=== PATIENT | male | born 1965 | race Caucasian/White ===

== ENCOUNTER 2017-02-24 08:32 | Outpatient (CLI) ==
[2017-02-24 08:52] LABS: BASOPHILS # (AUTO) 0.1 K/uL (0-0.2); BASOPHILS % (AUTO) 0.9 % (0.0-3.0); EOSINOPHILS # (AUTO) 1.2 K/ul (0.0-0.7); EOSINOPHILS % (AUTO) 10.6 % (0.0-7.0); HEMATOCRIT 51.7 % (42.0-52.0); HEMOGLOBIN 17.6 g/dl (14.0-18.0); IMMATURE GRANULOCYTE % (AUTO) 0.4 % (0.0-5.0); LYMPHOCYTES # (AUTO) 3.8 K/uL (0.60-3.4); LYMPHOCYTES % (AUTO) 33.6 (10.0-50.0); MEAN CORPUSCULAR HEMOGLOBIN 30.1 pg (27.0-31.0); MEAN CORPUSCULAR VOLUME 88.4 fl (80.0-94.0); MONOCYTES # (AUTO) 0.9 K/uL (0.4-2.0); MONOCYTES % (AUTO) 7.9 (0-10); NEUTROPHILS # (AUTO) 5.2 K/ul (2.0-6.9); NEUTROPHILS % (AUTO) 46.6; PLATELET COUNT 312 10^3/uL (140-440); RED BLOOD COUNT 5.85 10^6/ul (4.70-6.10); WHITE BLOOD COUNT 11.24 K/ul (4.2-10.2)
[2017-02-24 09:29] LABS: ALBUMIN 4.1 g/dL (3.4-5.0); ALBUMIN/GLOBULIN RATIO 1.32; ANION GAP 12.6; BILIRUBIN,TOTAL 1.41 mg/dL (0.00-1.20); CALCIUM 9.2 mg/dL (8.2-10.2); CHOL/HDL RATIO 5.1 (4.5-6.4); POTASSIUM 4.6 mmol/L (3.5-5.1); TOTAL PROTEIN 7.2 g/dL (6.4-8.2)
--- NOTE | 2017-02-25 08:54 | MRI ---
EXAM: Thoracic spine MRI without contrast. HISTORY: Back pain. COMPARISON: None. TECHNIQUE: Multiplanar, multisequence MR images were acquired of the thoracic spine without contras t. FINDINGS: 12 rib-bearing thoracic vertebra are present. There is minor mid thoracic dextroscoliosi s centered at T7-8 and there is mild mid thoracic kyphosis. There is mild chronic anterior wedging of the T7 and T8 vertebra. The thoracic vertebra are generally normal in height and intrinsic bone marrow signal. No acute compression fractures are present. Small ventral and lateral osteophytes a re present in the thoracic spine and there is mild endplate irregularity with disc space narrowing a nd disc desiccation from T2-3 to T11-12, this is most significant at T7-8, T8-9 and T11-12. There a re chronic Schmorl's nodes at T7, T9 and T11. There is faint visualization of the central canal in the thoracic cord at T4-5. Canal diameter is developmentally normal. However, there is prominent d orsal epidural lipomatosis from T3-4 to T10, most significant at T6, T7 and T8. This narrows the po sterior thecal sac. A perineural cyst is present on the right at C7-T1. There are no paravertebral masses. The visualized liver, spleen and upper pole of the left kidney are unremarkable. An exoph ytic upper pole right renal cyst is present. T1-2: The intervertebral disc is normal. There is mild bilateral foraminal stenosis. T2-3: There is a moderate dorsal spondylotic ridge that minimally effaces the ventral thecal sac. Prominent dorsal epidural fat is present and these findings cause mild spinal stenosis. AP diameter of the thecal sac is 9.3 mm. T3-4: The intervertebral disc is normal. There is mild right neural foraminal stenosis. A benign intraosseous hemangioma is present in the left posterior T3 vertebra. T4-5: There is a small right paracentral disc protrusion and annular fissure that mildly indents th e right thoracic cord. There is mild spinal stenosis. AP diameter of the thecal sac is 8.2 mm. T5-6: The intervertebral disc is normal. T6-7: The intervertebral disc is normal. T7-8: There is a mild dorsal spondylotic ridge that minimally indents the thoracic cord although ce rebrospinal fluid is preserved around the cord. There is mild spinal stenosis. AP diameter of the t hecal sac is 8 mm. T8-9, T9-10: The intervertebral discs are normal. There is mild left T8-9 and mild bilateral T9-10 facet hypertrophy. There is mild bilateral foraminal stenosis. A benign intraosseous hemangioma is present in the left anterior T10 vertebra. T10-11: The intervertebral disc is normal. There is bilateral facet hypertrophy, greater on the le ft and mild right and mild to moderate left neural foraminal stenosis. T11-12: The intervertebral disc is normal. T12-L1: The intervertebral disc is normal. IMPRESSION: 1. Mild chronic anterior wedge compression deformities T7 and T8. No acute compression fractures. 2. Mild thoracic degenerative spondylosis with small chronic Schmorl's nodes at T7, T9 and T11. 3. Dorsal epidural lipomatosis which in conjunction with degenerative changes causes mild spinal st enosis at T2-3, T4-5 and T7-8. 4. Small right paracentral disc protrusion T4-5 that mildly indents the right thoracic cord. 5. Mild dorsal spondylotic ridge at T7-8 that minimally indents the thoracic cord without edema.
== END 2017-02-24 08:33 | disposition home or self-care (01) ==
LOC: RAD 08:32
PROVIDERS: ATTEND Nurse Practitioner Family
DX: M54.6 Pain in thoracic spine (principal); G89.29 Other chronic pain; Z00.00 Encounter for general adult medical examination without abnormal findings; Z72.0 Tobacco use
CPT/HCPCS: 36415; 80053; 80061; 84443; 85025; 93005; 93010

== ENCOUNTER 2017-03-17 08:51 | Outpatient (CLI) ==
--- NOTE | 2017-03-17 09:44 | CT ---
EXAM: CT chest with contrast. HISTORY: Dysphagia. COMPARISON: None available. TECHNIQUE: Multiple axial images of the chest were obtained following intravenous administration of 75 mL of Omnipaque 350, low osmolar. Images were reformatted in the sagittal and coronal planes. FINDINGS: No mediastinal, hilar, or axillary lymphadenopathy identified. Heart size is normal. No pericardial effusion identified. A 0.4 cm left lower lobe nodule on axial image 49 is noted. Smaller left lower lobe nodule noted on axial image 35. No consolidation, pleural effusion or pneumothorax identified. Limited images of the upper abdomen demonstrate a homogeneous fluid density of right renal mass libby uring 6.4 cm diameter. No acute osseous abnormality identified. Old appearing compression deformit y of T7 noted along with multilevel degenerative endplate changes. IMPRESSION: 1. No acute abnormality of the chest. 2. Left lower lobe micronodules. Consider follow-up CT 12 months for reassessment. 3. Large right renal cyst.
== END 2017-03-17 08:52 | disposition home or self-care (01) ==
LOC: RAD 08:51
PROVIDERS: ATTEND Nurse Practitioner Family
DX: R13.10 Dysphagia, unspecified (principal); Z72.0 Tobacco use

== ENCOUNTER 2017-03-20 09:04 | Outpatient (CLI) ==
--- NOTE | 2017-03-20 10:28 | DI ---
EXAM: Double contrast esophagram. History: Dysphagia. Technique: Patient was given gas crystals. Patient was then given oral barium and multiple spot fi lms of the esophagus and gastroesophageal junction were obtained in various projections. Findings: The course and caliber of the esophagus are within normal limits. A suggestion of a felin e esophagus with minimal mucosal irregularity. No rajni esophageal masses. No hiatal hernia. No ga stroesophageal reflux was observed during the course of this examination. No gastric outlet obstruc tion. 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
== END 2017-03-20 09:05 | disposition home or self-care (01) ==
LOC: RAD 09:04
PROVIDERS: ATTEND Nurse Practitioner Family
DX: R13.10 Dysphagia, unspecified (principal)

== ENCOUNTER 2017-05-25 08:33 | Outpatient (RCR) ==
--- NOTE | 2017-05-26 15:51 | RS.OPPTEV2 ---
Date of Note: 05/25/17 Visit #: 1 Date of Evaluation: 05/25/17 Payer Source: Medicaid Treatment Diagnosis: Thoracic spine pain History of Condition/Mechanism of Injury:: Patient reports progressive thoracic spine pain for years. States pain has been much worse for about the last 12 months. Prior Level of Function.....Patient was independent with: ADL's, Self Care, Caregiving, Ambulation/Mobility, Community Integration/Access Functional Limitations: Sleep, ADL's, Reaching, Pushing, Pulling, Lifting, Carrying, Sitting Current Subjective/complaints:: Patient reports mid back pain with sitting activities. Reports the right side of the back bothers him the most. He is right hand dominant. States his sleeping interrupted from pain and the fact that he sleeps during the day. Reports laying on one side sometimes feels like it helps line up his spine and feels a little better. He denies numbness, radiating pain, or weakness. States he does not do much, states he life is very dull. He feels that heavy work throughout his life has cause his mid back pain. He just started going to Pain Management and has not had any injections or procedures. He was prescribed a muscle relaxant, but states he does not take it. He takes Tramadol once a day. Medical History Medical History: Arthritis (Elbows, spine, and knees) Smoking Status: Current every day smoker Hx Home Medications: Tramadol Patient's Goals: His goal is to get relief of middle back pain. Pain Assessment - Pain Description Pain Location: thoracic spine, worse on the right side Current Pain Intensity: 7/10 Worst Pain Intensity: 10/10 Functional Outcome Measure Oswestry LBP: 44 - G Codes & Severity Modifier G Codes & Modifier: NA Source of G Code score: Na Observation - Observation Posture: Forward Head, Rounded Shoulders, Decreased Lumbar Lordosis Comments: Left rotation of thoracic spine. Handedness: Right Gait - Gait Pattern General Gait Pattern Observation: No Deviations/Normal General Range of Motion: Bilateral UE and LE AROM is WFL's. Muscle Strength: Left wrist extension 4+/5, all else of bilateral UE and LE's 5/ 5. Palpation Comments:: Reports no signficant tenderness with palpation along the thoracic paraspinals. Demonstrates moderate increased muscle tone at the lower thoracic paraspinals. Reports no tenderness with central PA's along the thoracic spinous processes. Sensation - Sensation Right Upper Extremity: Intact/Normal Left Upper Extremity: Intact/Normal Right Lower Extremity: Intact/Normal Left Lower Extremity: Intact/Normal Additional Comments: Additional Comments: Demonstrates tightness in pec major and shoulder ER's bilaterally. Interventions - Exercise/Activities/Manual Therapy Exercises/Activities: Patient instructed in scapular retraction with and without green theraband, bilateral shoulder extension with green theraband, and pec major stretch (corner stretch). Reviewed thoracic spine anatomy in detail and explained the effects of poor posture on the spine and muscles. Manual Therapy: NA HOME EXERCISE PROGRAM: scapular retraction with and without green theraband, bilateral shoulder extension with green theraband, and pec major stretch ( corner stretch) - Charges Total Direct Minutes: 65 mins Total Treatment Time: 65 mins Procedures billed for this date of service:: [facility] X 4 Assessment Assessment: Patient presents to therapy with a diagnosis of Thoracic pain, Degenerative disc disease, spondylosis, T7 and T8 compression deformities. He presents with reports of progressively worsening middle back pain. Reports increased pain with prolonged sitting. Sleep is also interrupted from back pain. He presents a very forward head posture and rounded shoulders, which has most likely led to progressively tight chest muscles and weak posterior spine muscle strength. He demonstrates good potential to gain some relief of thoracic spine pain from modalities as indicated and postural strengthening and education. Patient Education: Education of diagnosis, Body/Joint mechanics, Home Exercise Program, Education of Plan of Care Rehab Potential: Good Short Term Goals Goal #1: Patient independent and compliant with initial HEP. Goal to be met by: 06/09/17 Goal #2: Pt to demonstrate improved postural awareness. Goal to be met by: 06/09/17 Goal #3: Pt will demonstrate optimal shoulder horizontal abduction bilaterally. Goal to be met by: 06/09/17 [employer] Operator Goals Goal #1: Patient to report minimal thoracic pain in prolonged sitting positions. Goal to be met by: 07/10/17 Goal #2: Pt knows HEP and to continue ex's to maintain functional level at D/C. Goal to be met by: 07/10/17 Goal #3: Pt to demo. good understanding of body mechanics, posture, and back safety. Goal to be met by: 07/10/17 Plan - Treatment to be Provided Procedures: Therapeutic Exercises, Therapeutic Activity, Patient Education ( postural education and back safety) Modalities: Electrical Stimulation, Cryotherapy, Hot Packs - Treatment Plan Frequency: 2 X week Duration: 6 weeks ORDER # VISITS AND/OR THROUGH DATE: 07/10/17 - Treatment Code (1) Thoracic spine pain Comments: M54.6 (2) Posture imbalance Comments: R29.3 (3) Deformity of thoracic structure Comments: M95.9 Thoracic compression deformities
--- NOTE | 2017-05-30 13:06 | RS.CXNS ---
Date of scheduled appointment: 05/30/17 Type: No Show
--- NOTE | 2017-06-01 11:24 | RS.CXNS ---
Date of scheduled appointment: 06/01/17 Type: No Show
== END 2017-06-05 ==
PROVIDERS: ATTEND Pain Medicine Interventional Pain Medicine
DX: M54.6 Pain in thoracic spine (principal); M54.5 Low back pain; M95.9 Acquired deformity of musculoskeletal system, unspecified; M51.34 Other intervertebral disc degeneration, thoracic region; M47.9 Spondylosis, unspecified

== ENCOUNTER 2017-06-23 11:23 | Outpatient (CLI) ==
--- NOTE | 2017-06-23 12:14 | DI ---
Exam: Five x-rays of the lumbar spine. Comparison: None available. Reason for exam: Radiculopathy and pain. FINDINGS: No acute fracture or malalignment. The vertebral bodies and intervertebral body disc spa ce heights are relatively well maintained. There is mild rotatory dextroscoliosis of the lumbosacra l spine. No significant arthrosis. There is a normal appearing lumbar lordotic curve. Impression: No acute fracture or listhesis in the lumbar spine.
== END 2017-06-23 11:24 ==
LOC: RAD 11:23
PROVIDERS: ATTEND Pain Medicine Interventional Pain Medicine
DX: M51.26 Other intervertebral disc displacement, lumbar region (principal); M51.27 Other intervertebral disc displacement, lumbosacral region; M54.5 Low back pain

== ENCOUNTER 2017-07-24 12:01 | Outpatient (CLI) ==
[2017-07-24 12:33] LABS: BASOPHILS # (AUTO) 0.1 K/uL (0-0.2); BASOPHILS % (AUTO) 0.7 % (0.0-3.0); EOSINOPHILS # (AUTO) 0.8 K/ul (0.0-0.7); EOSINOPHILS % (AUTO) 9.2 % (0.0-7.0); HEMATOCRIT 49.6 % (42.0-52.0); HEMOGLOBIN 16.6 g/dl (14.0-18.0); IMMATURE GRANULOCYTE % (AUTO) 0.4 % (0.0-5.0); LYMPHOCYTES # (AUTO) 3.3 K/uL (0.60-3.4); MEAN CORPUSCULAR HEMOGLOBIN 29.4 pg (27.0-31.0); MEAN CORPUSCULAR HGB CONC 33.5 (31.8-35.4); MEAN CORPUSCULAR VOLUME 87.8 fl (80.0-94.0); MONOCYTES # (AUTO) 0.9 K/uL (0.4-2.0); MONOCYTES % (AUTO) 9.3 (0-10); NEUTROPHILS % (AUTO) 44.4; PLATELET COUNT 297 10^3/uL (140-440); RED BLOOD COUNT 5.65 10^6/ul (4.70-6.10)
--- NOTE | 2017-07-24 12:35 | DI ---
EXAM: PA and lateral views of the chest HISTORY: Hyperhidrosis COMPARISON: CT chest 03/17/2017 FINDINGS: The cardiomediastinal silhouette is normal. There is no pneumothorax or pleural effusion. There is no consolidation, nodule or mass. The osseous structures demonstrate degenerative disease of the spine. IMPRESSION: No acute cardiopulmonary process
== END 2017-07-24 12:02 | disposition home or self-care (01) ==
LOC: LAB 12:01
PROVIDERS: ATTEND Nurse Practitioner Family
DX: R61 Generalized hyperhidrosis (principal)
CPT/HCPCS: 36415; 82306; 82607; 84425; 84443; 84446; 84590; 85025; 86701

== ENCOUNTER 2017-08-03 09:57 | Outpatient (CLI) ==
--- NOTE | 2017-08-03 11:04 | DI ---
EXAM: Three views of the left hand HISTORY: Pain in the left hand. COMPARISON: None FINDINGS: There is no cortical irregularity or displaced fracture of the left hand. The joint spaces are maintained. There is no lytic or blastic lesion. The soft tissues are unremarkable. IMPRESSION: No acute abnormality or displaced fracture of the left hand.
== END 2017-08-03 09:58 | disposition home or self-care (01) ==
LOC: RAD 09:57
PROVIDERS: ATTEND Nurse Practitioner Family
DX: M79.642 Pain in left hand (principal)

== ENCOUNTER 2017-08-18 12:48 | Outpatient (CLI) ==
--- NOTE | 2017-08-18 16:11 | MRI ---
EXAM: MRI left hand without contrast.. HISTORY: Pain in joints of left hand. Bumps on palm of hand near second and third finger.. TECHNIQUE: Using a local coil on a high field strength magnet multiplanar multisequence large field of view imaging obtained through level of the left hand without intravenous or intra-articular gadoli nium contrast. Note this constitutes incomplete MR evaluation of the left wrist.. COMPARISON: Three-view plain film examination left hand 08/03/2017. FINDINGS: The alignment of the left hand shows no dislocation or joint subluxations. Trace radiocar pal joint effusion. Bone marrow signal intensity shows no acute fracture or bone erosions. The exit of the carpal tunnel within normal limit in appearance. Dorsal extensor and palmar flexor t endons grossly intact without tenosynovitis or tendon bow stringing. No markers placed in the ronen ent's reported area of clinical "bumps".. There is subcutaneous bright T2 signal intensity along the palmar soft tissues more centered over the metacarpal phalangeal joint level. At this level centere d more over the palmar aponeurosis and more over the third and fourth digit level there is some ill-d efined intermediate T1 and T2/STIR signal intensity. These two areas of approximate 15 mm in length and 6-8 mm wide. Otherwise the muscle bulk shows normal signal intensity. Tiny 8 mm bright T2 fluid signal intensity cyst along the radial sided aspect of the third metacarpal neck. Question small syn ovial/ganglion cyst.. IMPRESSION: No acute fracture left hand. No bone erosions. No joint subluxations or tenosynovitis. Subcutaneous edema along the palmar soft tissues more centered over the metacarpal phalangeal joint l evel. At this level centered over the palmar aponeurosis over the third and fourth digit level there is an ill-defined focal intermediate signal intensity. Etiology uncertain. Differential diagnosis m ight include palmar fibromatosis, amongst others. 8 mm question synovial/ganglion cyst along the radial sided aspect of the third metacarpal neck.
== END 2017-08-18 12:49 | disposition home or self-care (01) ==
LOC: RAD 12:48
PROVIDERS: ATTEND Nurse Practitioner Family
DX: M25.542 Pain in joints of left hand (principal)